=== PATIENT | male | born 1985 | race Two or more races ===

== ENCOUNTER 2021-08-05 18:51 | Emergency (ER) | payer SELFPAY ==
[~2021-08-05] VITALS: Ht 162.6 cm; Wt 99.3 kg
[2021-08-05 19:42] VITALS: BP 143/86
== END 2021-08-06 01:50 | disposition left against medical advice (07) ==
LOC: EDBD 18:51 → ER 18:51
DX: R11.10 Vomiting, unspecified (principal); Z53.29 Procedure and treatment not carried out because of patient's decision for other reasons